=== PATIENT | male | born 1970 | race Caucasian/White ===

== ENCOUNTER 2017-08-27 11:58 | Observation (INO) | payer BC, OTHER ==
[2017-08-27] MEDS ORDERED: ASPIRIN 81 MG PO STA (12:25)
[2017-08-27] MEDS ORDERED: NITROGLYCERIN OINT 1 INCH/GM PACKET TOPICAL STA (12:25)
--- NOTE | 2017-08-27 12:27 | ED ---
General Adult HPI - General Chief complaint: Chest Pain Stated complaint: Chest Pain Time Seen by Provider: 08/27/17 12:00 Source: patient, RN notes reviewed Mode of arrival: wheelchair Limitations: no limitations - History of Present Illness Initial comments: This is a 46-year-old male with past history significant for high blood pressure and smoking. Patient states he also has a positive family history for heart disease. Patient comes in today because she's had one day history of chest pain with pain radiating down his left arm. Patient states yesterday had the same thing he went to his family doctor's office today For about 6 hours is pressure, never did any blood work. Patient states the pain continues today is intermittent in nature. Patient states when it comes the pain is on his left arm and he has some shortness of breath. Patient denies any diaphoresis. Patient denies nausea vomiting diarrhea. Patient denies headache patient denies numbness weakness. Patient denies any lightheadedness dizziness or near syncopal episode. - Related Data Home Medications Medication Instructions Recorded Confirmed Allopurinol [Zyloprim] 200 mg PO DAILY 08/27/17 08/27/17 Lisinopril-Hctz 20-12.5 mg 1 tab PO DAILY 08/27/17 08/27/17 [Zestoretic 20-12.5] oxyCODONE HCL 20 mg PO QID 08/27/17 08/27/17 Allergies Allergy/AdvReac Type Severity Reaction Status Date / Time No Known Allergies Allergy Verified 08/27/17 13:03 Review of Systems ROS Statement: Those systems with pertinent positive or pertinent negative responses have been documented in the HPI. ROS Other: All systems not noted in ROS Statement are negative. Past Medical History Past Medical History: Hypertension History of Any Multi-Drug Resistant Organisms: None Reported Past Surgical History: Back Surgery, Orthopedic Surgery Past Psychological History: No Psychological Hx Reported Smoking Status: Current every day smoker Past Alcohol Use History: Occasional Past Drug Use History: None Reported General Exam - General Exam Comments Initial Comments: GENERAL: Patient is well-developed and well-nourished. Patient is nontoxic and well- hydrated and is in mild distress. ENT: Neck is soft and supple. No significant lymphadenopathy is noted. Oropharynx is clear. Moist mucous membranes. Neck has full range of motion without eliciting any pain. EYES: The sclera were anicteric and conjunctiva were pink and moist. Extraocular movements were intact and pupils were equal round and reactive to light. Eyelids were unremarkable. PULMONARY: Unlabored respirations. Good breath sounds bilaterally. No audible rales rhonchi or wheezing was noted. CARDIOVASCULAR: There is a regular rate and rhythm without any murmurs gallops or rubs. ABDOMEN: Soft and nontender with normal bowel sounds. No palpable organomegaly was noted. There is no palpable pulsatile mass. SKIN: Skin is clear with no lesions or rashes and otherwise unremarkable. NEUROLOGIC: Patient is alert and oriented x3. Cranial nerves II through XII are grossly intact. Motor and sensory are also intact. Normal speech, volume and content. Symmetrical smile. MUSCULOSKELETAL: Normal extremities with adequate strength and full range of motion. LYMPHATICS: No significant lymphadenopathy is noted PSYCHIATRIC: Normal psychiatric evaluation. Limitations: no limitations Course Vital Signs 08/27/17 08/27/17 08/27/17 12:04 12:44 13:15 Temperature 98.4 F Pulse Rate 75 84 64 Respiratory 20 18 18 Rate Blood Pressure 133/83 137/81 124/59 O2 Sat by Pulse 100 99 98 Oximetry Medical Decision Making - Medical Decision Making EKG shows normal sinus rhythm at 70 bpm NC interval 130 QRS is 86 QT interval 418 QTC is 451. Patient's EKG shows no ST segment elevation or depression or T wave normalities are noted. Patient's chest x-ray shows no acute normalities. Patient's chest pain was much improved. - Lab Data Result diagrams: 08/27/17 12:27 08/27/17 12:27 Lab Results 08/27/17 08/27/17 08/27/17 Range/Units 12:27 12:27 12:27 WBC 7.3 (3.8-10.6) k/uL RBC 4.95 (4.30-5.90) m/uL Hgb 15.2 (13.0-17.5) gm/dL Hct 45.2 (39.0-53.0) % MCV 91.3 (80.0-100.0) fL MCH 30.8 (25.0-35.0) pg MCHC 33.7 (31.0-37.0) g/dL RDW 13.3 (11.5-15.5) % Plt Count 272 (150-450) k/uL Neutrophils % 73 % Lymphocytes % 20 % Monocytes % 4 % Eosinophils % 2 % Basophils % 0 % Neutrophils # 5.3 (1.3-7.7) k/uL Lymphocytes # 1.5 (1.0-4.8) k/uL Monocytes # 0.3 (0-1.0) k/uL Eosinophils # 0.2 (0-0.7) k/uL Basophils # 0.0 (0-0.2) k/uL PT (9.0-12.0) sec INR (<1.2) APTT (22.0-30.0) sec Sodium 141 (137-145) mmol/L Potassium 4.5 (3.5-5.1) mmol/L Chloride 109 H (98-107) mmol/L Carbon Dioxide 22 (22-30) mmol/L Anion Gap 10 mmol/L BUN 16 (9-20) mg/dL Creatinine 0.66 (0.66-1.25) mg/dL Est GFR (MDRD) Af Amer >60 (>60 ml/min/1.73 sqM) Est GFR (MDRD) Non-Af >60 (>60 ml/min/1.73 sqM) Glucose 118 H (74-99) mg/dL Calcium 9.7 (8.4-10.2) mg/dL Magnesium 2.2 (1.6-2.3) mg/dL Total Bilirubin 0.4 (0.2-1.3) mg/dL AST 19 (17-59) U/L ALT 32 (21-72) U/L Alkaline Phosphatase 86 (38-126) U/L Total Creatine Kinase 106 (55-170) U/L CK-MB (CK-2) 2.2 (0.0-2.4) ng/mL CK-MB (CK-2) Rel Index 2.1 Troponin I <0.012 (0.000-0.034) ng/mL Total Protein 6.6 (6.3-8.2) g/dL Albumin 4.0 (3.5-5.0) g/dL 08/27/17 Range/Units 12:27 WBC (3.8-10.6) k/uL RBC (4.30-5.90) m/uL Hgb (13.0-17.5) gm/dL Hct (39.0-53.0) % MCV (80.0-100.0) fL MCH (25.0-35.0) pg MCHC (31.0-37.0) g/dL RDW (11.5-15.5) % Plt Count (150-450) k/uL Neutrophils % % Lymphocytes % % Monocytes % % Eosinophils % % Basophils % % Neutrophils # (1.3-7.7) k/uL Lymphocytes # (1.0-4.8) k/uL Monocytes # (0-1.0) k/uL Eosinophils # (0-0.7) k/uL Basophils # (0-0.2) k/uL PT 10.4 (9.0-12.0) sec INR 1.0 (<1.2) APTT 25.6 (22.0-30.0) sec Sodium (137-145) mmol/L Potassium (3.5-5.1) mmol/L Chloride (98-107) mmol/L Carbon Dioxide (22-30) mmol/L Anion Gap mmol/L BUN (9-20) mg/dL Creatinine (0.66-1.25) mg/dL Est GFR (MDRD) Af Amer (>60 ml/min/1.73 sqM) Est GFR (MDRD) Non-Af (>60 ml/min/1.73 sqM) Glucose (74-99) mg/dL Calcium (8.4-10.2) mg/dL Magnesium (1.6-2.3) mg/dL Total Bilirubin (0.2-1.3) mg/dL AST (17-59) U/L ALT (21-72) U/L Alkaline Phosphatase (38-126) U/L Total Creatine Kinase (55-170) U/L CK-MB (CK-2) (0.0-2.4) ng/mL CK-MB (CK-2) Rel Index Troponin I (0.000-0.034) ng/mL Total Protein (6.3-8.2) g/dL Albumin (3.5-5.0) g/dL Disposition Clinical Impression: Chest pain Disposition: ADMITTED IP TO THIS [facility] Referrals: None,Stated [Primary Care Provider] - 1-2 days Time of Disposition: 13:47
[2017-08-27 12:58] LABS: Basophils % (A) 0 %; CH 31.1; CHCM 34.2; Eosinophils # (A) 0.2 k/uL (0-0.7); Eosinophils % (A) 2 %; HCT 45.2 % (39.0-53.0); HDW 2.56; HGB 15.2 gm/dL (13.0-17.5); Luc # (Auto) 0.08; Luc % (Auto) 1; Lymphocytes # (A) 1.5 k/uL (1.0-4.8); Lymphocytes % (A) 20 %; MCH 30.8 pg (25.0-35.0); MCHC 33.7 g/dL (31.0-37.0); MCV 91.3 fL (80.0-100.0); Monocytes # (A) 0.3 k/uL (0-1.0); Monocytes % (A) 4 %; Neutrophils # (A) 5.3 k/uL (1.3-7.7); Neutrophils % (A) 73 %; RBC 4.95 m/uL (4.30-5.90); RDW 13.3 % (11.5-15.5); WBC 7.3 k/uL (3.8-10.6); WBC (Perox) 7.09
--- NOTE | 2017-08-27 12:59 | XR ---
EXAMINATION TYPE: XR chest 2V DATE OF EXAM: 08/27/2017 COMPARISON: NONE HISTORY: Chest pain TECHNIQUE: Frontal and lateral views of the chest are obtained. FINDINGS: There is no focal air space opacity. No evidence for pneumothorax. No pleural effusion. The cardiac silhouette size is within normal limits. The osseous structures are grossly intact. IMPRESSION: 1. No acute cardiopulmonary process.
[2017-08-27 13:03] LABS: Partial Thromboplastin Time 25.6 sec (22.0-30.0); Prothrombin Time 10.4 sec (9.0-12.0)
[2017-08-27 13:07] LABS: ALT 32 U/L (21-72); AST 19 U/L (17-59); Alkaline Phosphatase 86 U/L (38-126); Anion Gap 10 mmol/L; Blood Urea Nitrogen 16 mg/dL (9-20); Calcium 9.7 mg/dL (8.4-10.2); Carbon Dioxide 22 mmol/L (22-30); Chloride 109 mmol/L (98-107); Glucose 118 mg/dL (74-99); Magnesium 2.2 mg/dL (1.6-2.3); Non-African American GFR(MDRD) >60 (>60 ml/min/1.73 sqM); Potassium 4.5 mmol/L (3.5-5.1); Sodium 141 mmol/L (137-145); Total Bilirubin 0.4 mg/dL (0.2-1.3); Total Protein 6.6 g/dL (6.3-8.2)
[2017-08-27 13:16] LABS: Creatine Kinase 106 U/L (55-170)
[2017-08-27 13:29] LABS: Creatine Kinase MB 2.2 ng/mL (0.0-2.4); Troponin I <0.012 ng/mL (0.000-0.034)
[2017-08-27] MEDS ORDERED: NITROGLYCERIN SL TABS 0.4 MG TAB SUBLINGUAL PRN (13:49)
[2017-08-27 15:24] VITALS: BMI 25.1
--- NOTE | 2017-08-27 16:20 | P.HPIM ---
History of Present Illness 47-year-old gentleman with history of high blood pressure and smoking history smokes about 10 cigars per day came in with complaints of chest pressure-like sensation nonexertional in the midsternal area radiating to the left arm 5 x 10 in severity lasted for few hours no aggravating or relieving factors improved now patient denied any fever, chills patient is complaining of cough and Alvaro congestion patient denied any diaphoresis, lightheadedness associated with that patient's chest pain is nonpleuritic in nature not associated with food rate patient has some shortness of breath associated with chest pain as well. Review of Systems REVIEW OF SYSTEMS: CONSTITUTIONAL: No fever, no malaise, no fatigue. HEENT: No recent visual problems or hearing problems. Denied any sore throat. CARDIOVASCULAR: No orthopnea, PND, no palpitations, no syncope. PULMONARY: , no cough, no hemoptysis. GASTROINTESTINAL: No diarrhea, no nausea, no vomiting, no abdominal pain. Normoactive bowel sounds. NEUROLOGICAL: No headaches, no weakness, no numbness. HEMATOLOGICAL: Denies any bleeding or petechiae. GENITOURINARY: Denies any burning micturition, frequency, or urgency. MUSCULOSKELETAL/RHEUMATOLOGICAL: Denies any joint pain, swelling, or any muscle pain. ENDOCRINE: Denies any polyuria or polydipsia. The rest of the 14-point review of systems is negative. Past Medical History Past Medical History: Hypertension History of Any Multi-Drug Resistant Organisms: None Reported Past Surgical History: Back Surgery, Orthopedic Surgery Additional Past Surgical History / Comment(s): right knee acl reconstruction Past Anesthesia/Blood Transfusion Reactions: No Reported Reaction Past Psychological History: No Psychological Hx Reported Smoking Status: Current every day smoker Past Alcohol Use History: Occasional Additional Past Alcohol Use History / Comment(s): pt states he smokes less than 1/2 a ppd Past Drug Use History: None Reported Medications and Allergies Home Medications Medication Instructions Recorded Confirmed Type Allopurinol [Zyloprim] 200 mg PO DAILY 08/27/17 08/27/17 History Lisinopril-Hctz 20-12.5 mg 1 tab PO DAILY 08/27/17 08/27/17 History [Zestoretic 20-12.5] oxyCODONE HCL 20 mg PO QID 08/27/17 08/27/17 History Allergies Allergy/AdvReac Type Severity Reaction Status Date / Time No Known Allergies Allergy Verified 08/27/17 13:03 Physical Exam Vitals: Vital Signs Temp Pulse Pulse Resp BP BP Pulse Ox 08/27/17 15:00 98.5 F 76 16 122/59 98 08/27/17 14:08 81 18 155/66 98 08/27/17 14:07 98.3 F 08/27/17 13:15 64 18 124/59 98 08/27/17 12:44 84 18 137/81 99 08/27/17 12:04 98.4 F 75 20 133/83 100 Intake and Output 08/27/17 08/27/17 08/27/17 06:59 14:59 22:59 Other: Weight 81.647 kg 81.647 kg Patient Weight 08/28/17 06:59 Weight 81.647 kg PHYSICAL EXAMINATION: GENERAL: The patient is alert and oriented x3, not in any acute distress. Well developed, well nourished. HEENT: Pupils are round and equally reacting to light. EOMI. No scleral icterus. No conjunctival pallor. Normocephalic, atraumatic. No pharyngeal erythema. No thyromegaly. CARDIOVASCULAR: S1 and S2 present. No murmurs, rubs, or gallops. PULMONARY: Chest is clear to auscultation, no wheezing or crackles. ABDOMEN: Soft, nontender, nondistended, normoactive bowel sounds. No palpable organomegaly. MUSCULOSKELETAL: No joint swelling or deformity. EXTREMITIES: No cyanosis, clubbing, or pedal edema. NEUROLOGICAL: Gross neurological examination did not reveal any focal deficits. SKIN: No rashes. Results CBC & Chem 7: 08/27/17 12:27 08/27/17 12:27 Labs: Abnormal Lab Results - Last 24 Hours (Table) 08/27/17 Range/Units 12:27 Chloride 109 H (98-107) mmol/L Glucose 118 H (74-99) mg/dL Thrombosis Risk Factor Assmnt - Choose All That Apply Any of the Below Risk Factors Present?: Yes Each Factor Represents 1 point: Age 41-60 years, Obesity (BMI >25) Other Risk Factors: No Other congenital or acquired thrombophilia - If yes, enter type in comment: No Thrombosis Risk Factor Assessment Total Risk Factor Score: 2 Thrombosis Risk Factor Assessment Level: Low Risk Assessment and Plan Plan: #1 chest pain we will rule out acute coronary syndromes: Patient may end up needing a stress test as of his smoking history. Patient's second-degree relative has history of premature coronary artery disease in his 50s. Patient will be evaluated cardiology #2 tobacco abuse counseling was provided #3 hypertension patient will be resumed on his home medications. #4 chronic low back pain
[2017-08-27] MEDS: NITROGLYCERIN OINT 1 INCH/GM PACKET TOPICAL SCH ×2 (17:49→23:27)
[2017-08-27] MEDS: ALLOPURINOL 100 MG TAB PO SCH (17:50)
[2017-08-27 19:20] LABS: Creatine Kinase 95 U/L (55-170)
[2017-08-27 19:33] LABS: Creatine Kinase MB 1.5 ng/mL (0.0-2.4); Troponin I <0.012 ng/mL (0.000-0.034)
[2017-08-27 21:06] VITALS: RESP 18
[2017-08-28 00:32] LABS: Creatine Kinase 99 U/L (55-170)
[2017-08-28 00:45] LABS: Creatine Kinase MB 1.7 ng/mL (0.0-2.4); Troponin I <0.012 ng/mL (0.000-0.034)
[2017-08-28] MEDS: NITROGLYCERIN OINT 1 INCH/GM PACKET TOPICAL SCH (06:01)
[2017-08-28 07:19] LABS: Basophils % (A) 1 %; CH 31.7; CHCM 34.4; Eosinophils # (A) 0.3 k/uL (0-0.7); Eosinophils % (A) 4 %; HCT 44.5 % (39.0-53.0); HDW 2.57; HGB 14.7 gm/dL (13.0-17.5); Luc # (Auto) 0.12; Luc % (Auto) 2; Lymphocytes # (A) 2.5 k/uL (1.0-4.8); Lymphocytes % (A) 33 %; MCH 30.6 pg (25.0-35.0); MCV 92.7 fL (80.0-100.0); Mean Platelet Volume 7.5; Monocytes # (A) 0.4 k/uL (0-1.0); Monocytes % (A) 6 %; Neutrophils # (A) 4.2 k/uL (1.3-7.7); Neutrophils % (A) 56 %; RDW 13.8 % (11.5-15.5); WBC 7.5 k/uL (3.8-10.6); WBC (Perox) 6.95
[2017-08-28 07:38] LABS: Anion Gap 10 mmol/L; Blood Urea Nitrogen 12 mg/dL (9-20); Calcium 9.5 mg/dL (8.4-10.2); Carbon Dioxide 24 mmol/L (22-30); Chloride 106 mmol/L (98-107); Cholesterol 227 mg/dL (<200); Glucose 108 mg/dL (74-99); HDL Cholesterol 37 mg/dL (40-60); Non-African American GFR(MDRD) >60 (>60 ml/min/1.73 sqM); Potassium 4.2 mmol/L (3.5-5.1); Sodium 140 mmol/L (137-145)
[2017-08-28] MEDS: ALLOPURINOL 100 MG TAB PO SCH (08:25)
[2017-08-28] MEDS ORDERED: LISINOPRIL-HCTZ 20-12.5 MG 1 EACH TAB PO SCH (09:00)
[2017-08-28] MEDS ORDERED: ASPIRIN 325 MG TAB PO SCH (09:00)
[2017-08-28] MEDS ORDERED: ATORVASTATIN 40 MG TAB PO SCH (09:30)
--- NOTE | 2017-08-28 10:04 | CONS ---
CONSULTATION Mr. Davila is 46-year-old male with a known history of hypertension, history of chronic tobacco use, who presented with symptoms of chest discomfort. He has been having discomfort for 2 days, not exertional in pattern and at times lasting for few hours. He has some dyspnea on exertion. Because of the persistent symptoms, he came into the emergency room and subsequently admitted. The patient is active physically, has no symptoms of exertional chest discomfort. He has no dizziness, palpitation, or syncope. No PND, orthopnea, or peripheral edema. He has no prior documented history of CAD. His coronary risk factors are remarkable for history of hypertension, history of chronic tobacco use. He is nondiabetic. His lipid profile is not available. His uncle had a history of premature coronary disease. MEDICATION: His medications at home include: 1. Oxycodone. 2. Lisinopril HCT 20-12.5 mg daily. 3. Zyloprim. REVIEW OF SYSTEMS: RESPIRATORY SYSTEM: He has no documented history of asthma or emphysema. No recent wheezing. GI system no recent GI bleeding. No peptic ulcer disease. system: No dysuria or hematuria. Nervous system: No stroke or seizure. PHYSICAL EXAMINATION: 46-year-old male, alert, oriented, in no apparent distress. Blood pressure 136/79 with a heart rate in 70s. HEAD: Normocephalic. Eyes sclerae anicteric. Neck good upstroke. No bruit. No jugular venous distention. LUNGS: Clear to auscultation. HEART: Regular rhythm, S1, S2. No S3, no S4. No murmur, rub. ABDOMEN: Soft, nontender. Positive bowel sounds no megaly. EXTREMITIES: No edema. Intact pulses. LAB DATA: EKG revealed sinus mechanism, normal axis. Normal axis, early transition, no acute changes. Troponin less than 0.012. BUN and creatinine of 12 and 0.8. Potassium 4.2. Hemoglobin 14.7. Cholesterol of 227 with an LDL of 164. Chest x-ray revealed no acute infiltrate. IMPRESSION: 1. Chest discomfort of unclear etiology, appears to be atypical for ischemic heart disease. 2. Chronic tobacco use. 3. Hyperlipidemia, not treated. 4. Hypertension. RECOMMENDATION: From the cardiac standpoint, I will obtain echocardiogram with Doppler. If there is no evidence of segmental wall motion then I expect the patient to be able to be discharged home today and undergo a stress echocardiogram as an outpatient. I have discussed with him the importance of smoking cessation. Thank you for this consult. We will follow with you. MICHELLEL / IJN: [id number] /
[2017-08-28 11:46] VITALS: BP 124/65; PULSE 83; TEMP 97.7
--- NOTE | 2017-08-28 12:27 | P.DS ---
Providers Date of admission: 08/27/17 13:49 Attending physician: Jennifer Joy Consults: 08/27/17 13:49 Consult Physician Urgent Consulting Provider: [facility] Consult Reason/Comments: Chest pain Do you want consulting provider notified?: Yes Primary care physician: Stated None Hospital Course: Patient was admitted for chest pain cardio valid the patient is recommending outpatient stress test patient appears to have an atypical chest pain feeling better today and will be discharged today. PHYSICAL EXAMINATION: GENERAL: The patient is alert and oriented x3, not in any acute distress. Well developed, well nourished. HEENT: Pupils are round and equally reacting to light. EOMI. No scleral icterus. No conjunctival pallor. Normocephalic, atraumatic. No pharyngeal erythema. No thyromegaly. CARDIOVASCULAR: S1 and S2 present. No murmurs, rubs, or gallops. PULMONARY: Chest is clear to auscultation, no wheezing or crackles. ABDOMEN: Soft, nontender, nondistended, normoactive bowel sounds. No palpable organomegaly. MUSCULOSKELETAL: No joint swelling or deformity. EXTREMITIES: No cyanosis, clubbing, or pedal edema. NEUROLOGICAL: Gross neurological examination did not reveal any focal deficits. SKIN: No rashes. #1 chest pain we will rule out acute coronary syndromes: #2 tobacco abuse counseling was provided #3 hypertension patient will be resumed on his home medications. #4 chronic low back pain Plan - Discharge Summary New Discharge Prescriptions: New Atorvastatin [Lipitor] 40 mg PO DAILY #30 tab Continue oxyCODONE HCL 20 mg PO QID Lisinopril-Hctz 20-12.5 mg [Zestoretic 20-12.5] 1 tab PO DAILY Allopurinol [Zyloprim] 200 mg PO DAILY Discharge Medication List Allopurinol [Zyloprim] 200 mg PO DAILY 08/27/17 [History] Lisinopril-Hctz 20-12.5 mg [Zestoretic 20-12.5] 1 tab PO DAILY 08/27/17 [History ] oxyCODONE HCL 20 mg PO QID 08/27/17 [History] Atorvastatin [Lipitor] 40 mg PO DAILY #30 tab 08/28/17 [Rx] Follow up Appointment(s)/Referral(s): Griselda Nash MD [STAFF PHYSICIAN] - 3 Weeks None,Stated [Primary Care Provider] - 1-2 days Discharge Disposition: HOME SELF-CARE
--- NOTE | 2017-08-28 14:26 | ECHOF ---
Referral Reason: MEASUREMENTS -------- HEIGHT: 162.6 cm WEIGHT: 81.6 kg BP: 170/115 IVSd: 1.1 cm (0.6 - 1.1) LVIDd: 5.8 cm (3.9 - 5.3) LVPWd: 0.8 cm (0.6 - 1.1) IVSs: 1.3 cm LVIDs: 3.8 cm LVPWs: 1.5 cm LA Diam: 3.8 cm (2.7 - 3.8) Ao Diam: 3.4 cm (2.0 - 3.7) AV Cusp: 1.9 cm (1.5 - 2.6) LA Diam: 4.3 cm (2.7 - 3.8) MV EXCURSION: 23.254 mm (> 18.000) MV EF SLOPE: 81 mm/s (70 - 150) EPSS: 0.3 cm MV E Severiano: 0.62 m/s MV DecT: 177 ms MV A Severiano: 0.48 m/s MV E/A Ratio: 1.30 RAP: 5.00 mmHg RVSP: 27.32 mmHg FINDINGS -------- Sinus rhythm. This was a technically good study. LV size, wall thickness and systolic function are normal, with an EF greater than 55%. The right ventricle is normal in size. Normal LA size by volume 22+/-6 ml/m2. The right atrial size is normal. The aortic valve is trileaflet, and appears structurally normal. No aortic stenosis or regurgitation. The mitral valve is normal. Mild mitral regurgitation is present. Mild tricuspid regurgitation present. There is no evidence of pulmonary hypertension. The right ventricular systolic pressure, as measured by Doppler, is 27.32mmHg. There is no pulmonic regurgitation present. The aortic root size is normal. There is no pericardial effusion. CONCLUSIONS -------- 1. Sinus rhythm. 2. The aortic root size is normal. 3. There is no pericardial effusion. 4. This was a technically good study. 5. LV size, wall thickness and systolic function are normal, with an EF greater than 55%. 6. Normal LA size by volume 22+/-6 ml/m2. 7. The aortic valve is trileaflet, and appears structurally normal. No aortic stenosis or regurgitation. 8. Mild mitral regurgitation is present. 9. Mild tricuspid regurgitation present. 10. There is no evidence of pulmonary hypertension. 11. There is no pulmonic regurgitation present. CATHETER BUILDER: Tessy Guy RDCS
== END 2017-08-28 12:10 | disposition home or self-care (01) ==
LOC: EC 11:58 → 3OBS 13:49
PROVIDERS: ADMIT Hospitalist; ATTEND Hospitalist
DX: R07.89 Other chest pain (principal); E78.5 Hyperlipidemia, unspecified; I10 Essential (primary) hypertension; G89.29 Other chronic pain; M54.5 Low back pain; Z82.49 Family history of ischemic heart disease and other diseases of the circulatory system; M79.602 Pain in left arm; R06.02 Shortness of breath; R06.09 Other forms of dyspnea; E66.9 Obesity, unspecified; Z68.25 Body mass index [BMI] 25.0-25.9, adult; Z79.899 Other long term (current) drug therapy; Z79.891 Long term (current) use of opiate analgesic; F17.290 Nicotine dependence, other tobacco product, uncomplicated
CPT/HCPCS: 99285; 36415; 93005; 93306; 80061; 80053; 80048; 82550; 82553; 83735; 84484; 85025 ×2; 85610; 85730; 71020; G0378 ×2

== ENCOUNTER → 2021-03-27 | Outpatient (CLI) | payer BC ==
--- NOTE | 2021-03-27 20:38 | CONS ---
CONSULTATION DATE OF SERVICE: 03/27/2021 This 50-year-old gentleman has been evaluated in [facility] for obstructive sleep apnea-hypopnea syndrome. HISTORY OF PRESENT ILLNESS/SLEEP-WAKE EVALUATION: The patient has a history of obstructive sleep apnea since 2005. Since that time he has been on treatment with CPAP and continues to use the equipment every night for the whole night. His sleep schedule is from midnight until 8 a.m. on weekdays and until 9 a.m. on weekends. No problems with falling asleep, although he has a TV set in the bedroom. He usually sleeps on the side position. He wakes up from sleep 2 times with nocturia even while using his CPAP. During the day he usually does not take naps. [place] Sleepiness Scale is 3. No history of hypnagogic hallucinations, sleep paralysis or cataplexy. PAST MEDICAL HISTORY: Positive for hypertension, hyperlipidemia, acid reflux. PAST SURGICAL HISTORY: Right knee surgery in 1997, back surgery at level L5-S1. MEDICATIONS: 1. Losartan 25 mg once a day. 2. Amlodipine 10 mg once a day. 3. Pravastatin 40 mg once a day. 4. Nexium once a day. 5. Vitamin D 50,000 units once a week. SOCIAL HISTORY: Alcohol consumption on weekends. FAMILY HISTORY: Hypertension, acid reflux. REVIEW OF SYSTEMS: No fevers. No double vision. No recent chest pain. No shortness of breath. No abdominal pain. No bleeding episodes. No blood in the urine. No seizure episodes. Occasional awakenings while using his CPAP. PHYSICAL EXAMINATION: GENERAL: A pleasant gentleman without distress. VITAL SIGNS: BP 179/99, HR 83, RR 16, height 5 feet 10 inches, weight 207.2, temperature 97.6, oxygen saturation at room air 94%. Body mass index 29.7. HEENT: PERRLA, EOMI. Evaluation of oropharynx showed tongue protrudes midline. Short distance between soft palate and pharyngeal wall. NECK: Supple. No JVD. Thyroid is not palpable. Neck is 17 inches in circumference. LUNGS: Clear to percussion and to auscultation. Good air exchange. No wheezing or rhonchi. HEART: S1, S2 regular. No murmurs, gallops or rubs. ABDOMEN: Soft and nontender. Bowel sounds are present. No organomegaly appreciated. EXTREMITIES: No clubbing or cyanosis. DIGITAL WATCH ASSEMBLER: Awake, alert, and oriented X3. Cranial nerves 2 to 7 intact. There is no fasciculation or atrophy. noted. No focal deficits observed. IMPRESSION: 1. Obstructive sleep apnea-hypopnea syndrome for about 15 years. The patient continues to use his CPAP equipment. Sometimes he has awakenings from sleep with nocturia while on CPAP. CPAP unit is very old, more than 10 years old. 2. Hypertension. 3. Hyperlipidemia. 4. Acid reflux. 5. Status post right knee surgery in 1997. 6. Status post back surgery on the level L5-S1. PLAN: 1. Prescription for all necessary CPAP supplies, including medium-sized nasal pillow mask, tube, filters. 2. Patient's CPAP unit needs to be replaced. Prescription has been written. 3. Home sleep apnea test if necessary to confirm obstructive sleep apnea-hypopnea syndrome. 4. Watching weight. 5. Sleep hygiene with regular time in bed for at least 7-1/2 to 8 hours. 6. No driving if feeling any sleepiness. Thank you very much for referring this patient for consultation. Sincerely, David Smith MD, PhD, FAASM Diplomat of [employer] Advanced Quality Engineer of [facility] [place] MMODL / MUMTAZN: [id number] /
== END ==
LOC: SLEEP 16:19
PROVIDERS: ATTEND Internal Medicine
DX: G47.33 Obstructive sleep apnea (adult) (pediatric) (principal); I10 Essential (primary) hypertension; E78.5 Hyperlipidemia, unspecified; K21.9 Gastro-esophageal reflux disease without esophagitis; Z96.651 Presence of right artificial knee joint; Z98.890 Other specified postprocedural states

== ENCOUNTER → 2021-07-30 | Outpatient (CLI) | payer BC ==
--- NOTE | 2021-07-30 19:23 | SFUN ---
SLEEP CENTER FOLLOW UP NOTE DATE OF SERVICE: 07/30/2021 50-year-old gentleman has been followed in Sleep Center for treatment of obstructive sleep apnea-hypopnea syndrome. Recently the patient had repeated home sleep apnea test and I discussed results of the test with the patient in detail. Test showed severe obstructive sleep apnea-hypopnea syndrome. After that, the patient was prescribed CPAP unit. Today is his first visit with new CPAP unit. He is able to use equipment every night, likes it. No problems with the machine. [place] Sleepiness Scale today is only 2 which is perfect. I checked CPAP unit. Range of the pressure 5-15 with average pressure 9.6 cm of water. Usage is 30/30 nights for more than 4 hours with average usage is 8.1 hours per night. Leak is only 10 L/minute which is acceptable. Apnea-hypopnea index 1.1 which is perfect. MEDICATIONS: Losartan 25 mg once a day, amlodipine 10 mg once a day, atorvastatin 40 mg once a day, Nexium once a day, vitamin D supplement. PHYSICAL EXAMINATION: GENERAL: Patient in no distress. BP 151/81, HR 86, RR 15, weight 203, temp 98.6, oxygen saturation at room air 96%. Oropharynx short distance between soft palate and pharyngeal wall. Good air exchange. No wheezing or rhonchi. NECK: Supple, no JVD. Thyroid is not palpable. LUNGS: Clear to percussion and to auscultation. Good air exchange. No wheezing or rhonchi. HEART: S1, S2 regular. No murmurs, gallops, or rubs. ABDOMEN: Soft and nontender. Bowel sounds are present. No organomegaly appreciated. EXTREMITIES: No clubbing or cyanosis. MANUFACTURING SCHEDULER: Awake, alert, and oriented X3. Cranial nerves 2 to 7 intact. There is no fasciculation or atrophy. noted. No focal deficits observed. IMPRESSION: 1. Severe obstructive sleep apnea-hypopnea syndrome apnea-hypopnea index 60.7 with oxygen desaturation to 64%. The patient demonstrated 100% compliance with treatment, benefitting from treatment. 2. Hypertension. 3. Hyperlipidemia. 4. Acid reflux. 5. Status post right knee surgery in 1997. 6. Status post back surgery L5-S1. PLAN: 1. Patient will continue to use PAP equipment every night for the whole night. 2. Sleep hygiene with regular time in bed for at least 7-1/2 to 8 hours. 3. Precautions related to driving. No driving if feeling sleepiness. 4. I will maintain all necessary prescription for PAP supplies including mask, tube, filters. 5. Watching weight. 6. Follow-up visit in 6 months or earlier if patient has any problems. I spent with the patient and documentation 30 minutes. Thank you very much for allowing me to participate in management of your patient. Sincerely, David Smith MD, PhD, FAASM Diplomat of [employer] Sleep Medicine Board of [place] Manager Fashion of [facility] [place] MMODL / IJN: [id number] /
== END ==
LOC: SLEEP 16:32
PROVIDERS: ATTEND Internal Medicine
DX: G47.33 Obstructive sleep apnea (adult) (pediatric) (principal); G47.36 Sleep related hypoventilation in conditions classified elsewhere; I10 Essential (primary) hypertension; E78.5 Hyperlipidemia, unspecified; K21.9 Gastro-esophageal reflux disease without esophagitis; Z98.890 Other specified postprocedural states; Z99.89 Dependence on other enabling machines and devices; Z79.899 Other long term (current) drug therapy

== ENCOUNTER → 2022-02-05 | Outpatient (CLI) | payer BC ==
--- NOTE | 2022-02-05 22:01 | SFUN ---
SLEEP CENTER FOLLOW UP NOTE DATE OF SERVICE: 02/05/2022 This 51-year-old gentleman has been followed in Sleep Center for treatment of obstructive sleep apnea-hypopnea syndrome. The patient continues to use his CPAP equipment every night for the whole night and is getting his supplies on time. No snoring with the machine. [place] Sleepiness Scale today is 2, which is absolutely normal. I checked his CPAP unit. It is in automatic regimen. Range of the pressure is 5 to 15, average pressure 9.7. Usage is 30/30 nights for more than 4 hours, average 7.8 hours per night. Leak is 8 L/minute. Apnea-hypopnea index is only 1.1, which is absolutely perfect. MEDICATIONS: 1. Losartan 25 mg once a day. 2. Amlodipine 10 mg once a day. 3. Atorvastatin 40 mg once a day. 4. Nexium once a day. 5. Vitamin D supplement. 6. injections once a week. PHYSICAL EXAMINATION: GENERAL: Pleasant patient in no distress. VITAL SIGNS: BP 144/93, HR 80, RR 16, height 5 feet 10 inches, weight 205, body mass index 29.4, temperature 98.4, oxygen saturation room air 96%. HEENT: PERRLA, EOMI, evaluation of oropharynx showed tongue protrudes midline. Short distance between soft palate and pharyngeal wall. NECK: Supple, no JVD. Thyroid is not palpable. LUNGS: Clear to percussion and to auscultation. Good air exchange. No wheezing or rhonchi. HEART: S1, S2 regular. No murmurs, gallops, or rubs. ABDOMEN: Soft and nontender. Bowel sounds are present. No organomegaly appreciated. EXTREMITIES: No clubbing or cyanosis. MEDICAL DEVICE SALES CONSULTANT: Awake, alert, and oriented X3. Cranial nerves 2 to 7 intact. There is no fasciculation or atrophy. noted. No focal deficits observed. IMPRESSION: 1. Severe obstructive sleep apnea-hypopnea syndrome; apnea-hypopnea index 60.7 with oxygen desaturation to 64%. The patient demonstrated great compliance with treatment. Normal aspiration on CPAP, benefitting from treatment. 2. Hypertension. 3. Hyperlipidemia. 4. Acid reflux. 5. Status post back surgery L5, S1. 6. Status post right knee surgery in 1997. PLAN: 1. Patient will continue to use PAP equipment every night for the whole night. 2. Sleep hygiene with regular time in bed for at least 7-1/2 to 8 hours. 3. Precautions related to driving. No driving if feeling sleepiness. 4. I will maintain all necessary prescription for PAP supplies including mask, tube, filters. 5. Watching weight. 6. Follow-up visit in 6 months or earlier if patient has any problems. Thank you very much for allowing me to participate in the management of your patient. Sincerely, David Smith MD, PhD, FAASM Diplomat of [place] [employer] Sleep Medicine Board of [place] [employer] Medicine Production Control Expert of [facility] [place] MMODL / MUMTAZN: [id number] /
== END ==
LOC: SLEEP 16:42
PROVIDERS: ATTEND Internal Medicine
DX: G47.33 Obstructive sleep apnea (adult) (pediatric) (principal); G47.36 Sleep related hypoventilation in conditions classified elsewhere; I10 Essential (primary) hypertension; E78.5 Hyperlipidemia, unspecified; K21.9 Gastro-esophageal reflux disease without esophagitis; Z99.89 Dependence on other enabling machines and devices; Z98.890 Other specified postprocedural states; F17.200 Nicotine dependence, unspecified, uncomplicated

== ENCOUNTER → 2022-07-09 | Outpatient (CLI) | payer OTHER ==
--- NOTE | 2022-07-09 14:54 | P.PN ---
Subjective DATE: 07/09/2022 FOLLOW UP VISIT. Patient with obstructive sleep apnea hypopnea syndrome return to sleep center for follow-up visit. Information from previous visit have been reviewed. Patient is using PAP equipment every night for the whole night, getting PAP supplies in time. The patient does not have significant problems with the mask, PAP unit and humidification. [place] sleepiness scale is 4. I checked PAP unit. PAP unit pressure 5-15, average 9.3 cm H2O. Usage is 100 % for more then 4 hours, average 8 hours per night. Leak is 7 l/m, which is in acceptable range. Apnea Hypopnea Index is 0.9, which is normal. MEDICATIONS:1. Amlodipine 10 mg once a day 2. Pravastatin 80 mg once a day 3. Losartan 25 mg once a day 4. Trialicity 0.75 mg once a week 5. .Repatha every 2 weeks During physical exam: GENERAL: A pleasant patient without any distress. VITAL SIGNS: BP 149/94, HR 92, RR 16 , weight 205.2, temperature 97.6, oxygen saturation at room air 97 % . HEENT: PERRLA, EOMI. NECK: Supple. No JVD. LUNGS: Clear to percussion and to auscultation. Good air exchange. No wheezing or rhonchi. HEART: S1, S2 regular. ABDOMEN: Soft and nontender.[] EXTREMITIES: No clubbing or cyanosis. ASSISTANT RESEARCH SCIENTIST: Awake, alert, and oriented x3. No focal deficit. Impressions: 1. Obstructive sleep apnea-hypopnea syndrome. Patient demonstrated great compliance with treatment, benefiting from treatment. 2. Hypertension. 3. Hyperlipidemia. 4. Acid reflux. 5. Status post back surgery L5-S1. 6. Status post right knee surgery in 1997. 7 Plan: 1. Continue using PAP equipment every night for the whole night. 2. To change air filter at least 1-2 times per month. 3. PAP unit should stay lower then position of the head. 4. Advised patient to remove all remaining water from humidifier canister daily and make it dry after each usage. Refill canister with fresh distilled water before each usage. 5. Sleep hygiene with regular time in bed for at least 8 hours. 6. Precautions related to driving. No driving if feel any sleepiness. 7. I will maintain prescription for PAP supplies including mask, tube, filters. 8. Follow up visit in 6 months or earlier if patient has any problems. 9. Watching weight. Thank you very much for allowing me to participate in the management of your patient. David Smith MD, PhD, FAASM. Diplomat of [place] [employer], Sleep Medicine Board by [place] [employer] Medicine Computer Technician of [facility] [place]
== END ==
LOC: SLEEP 14:23
PROVIDERS: ATTEND Internal Medicine
DX: G47.33 Obstructive sleep apnea (adult) (pediatric) (principal); I10 Essential (primary) hypertension; E78.5 Hyperlipidemia, unspecified; K21.9 Gastro-esophageal reflux disease without esophagitis; Z98.890 Other specified postprocedural states; Z99.89 Dependence on other enabling machines and devices; F17.200 Nicotine dependence, unspecified, uncomplicated
CPT/HCPCS: 99212

== ENCOUNTER → 2023-02-17 | Outpatient (CLI) | payer BC, OTHER ==
--- NOTE | 2023-02-17 17:42 | P.PN ---
Subjective DATE: 02/17/2023 FOLLOW UP VISIT. Patient with obstructive sleep apnea hypopnea syndrome return to sleep center for follow-up visit. Information from previous visit have been reviewed. Patient is using PAP equipment every night for the whole night, getting PAP supplies in time. The patient does not have significant problems with the mask, PAP unit and humidification. [place] sleepiness scale is 3, which is perfect. I checked information from PAP unit and discussed it with patient. PAP unit pressure 5-15, average 9.3 cm H2O. Usage is 100 % for more then 4 hours, average 7.8 hours per night. Apnea Hypopnea Index is 0.8, which is normal. MEDICATIONS:1. Losartan 25 mg once a day 2. Amlodipine 10 mg once a day 3. Pravastatin 80 mg once a day 4. Trulicity 0.75 mg once a week During physical exam: GENERAL: A pleasant patient without any distress. VITAL SIGNS: BP 184/100, HR 106, RR 16, weight 202, temperature 98.1, oxygen saturation at room air 98 % . HEENT: PERRLA, EOMI.low position of soft palate, Mallapati 3. NECK: Supple. No JVD. LUNGS: Clear to percussion and to auscultation. Good air exchange. No wheezing or rhonchi. HEART: S1, S2 regular. ABDOMEN: Soft and nontender.[] EXTREMITIES: No clubbing or cyanosis. ORTHOTIST PROSTHETIST: Awake, alert, and oriented x3. No focal deficit. Impressions: 1. Obstructive sleep apnea-hypopnea syndrome. Patient demonstrated great compliance with treatment, benefiting from treatment. 2. Hyperlipidemia. 3. Hypertension. 4. Acid reflux. 5. Status post right knee surgery in 1997. 6. Status post back surgery L5-S1. Plan: 1. Continue using PAP equipment every night for the whole night. 2. To change air filter at least 1-2 times per month. 3. PAP unit should stay lower then position of the head. 4. Advised patient to remove all remaining water from humidifier canister daily and make it dry after each usage. Refill canister with fresh distilled water before each usage. 5. Sleep hygiene with regular time in bed for at least 8 hours. 6. Precautions related to driving. No driving if feel any sleepiness. 7. I will maintain prescription for PAP supplies including mask, tube, filters. 8. Watching weight. 9. Follow up visit in 6 months or earlier if patient has any problems. Thank you very much for allowing me to participate in the management of your patient. David Smith MD, PhD, FAASM. Diplomat of [place] [employer] Sleep Medicine, Sleep Medicine Board by [place] [employer] Medicine Teacher [employer] Education of [facility] [place]
== END ==
LOC: SLEEP 15:50
PROVIDERS: ATTEND Internal Medicine
DX: G47.33 Obstructive sleep apnea (adult) (pediatric) (principal); E78.5 Hyperlipidemia, unspecified; I10 Essential (primary) hypertension; F17.210 Nicotine dependence, cigarettes, uncomplicated; K21.9 Gastro-esophageal reflux disease without esophagitis; I71.40 Abdominal aortic aneurysm, without rupture, unspecified; Z96.651 Presence of right artificial knee joint; Z99.89 Dependence on other enabling machines and devices; Z98.890 Other specified postprocedural states; Z79.01 Long term (current) use of anticoagulants; Z79.899 Other long term (current) drug therapy
CPT/HCPCS: 99212

== ENCOUNTER → 2024-08-17 | Outpatient (CLI) | payer OTHER ==
[2024-08-17 17:08] VITALS: BP 164/98; PULSE 91; RESP 16; TEMP 98.4
--- NOTE | 2024-08-17 17:29 | P.PROGSL ---
Subjective DATE: 08/17/2024 FOLLOW UP VISIT. Patient with obstructive sleep apnea hypopnea syndrome return to sleep center for follow-up visit. Information from previous visit have been reviewed. Patient is using PAP equipment every night for the whole night, getting PAP supplies in time. The patient does not have significant problems with the mask, PAP unit and humidification. [place] sleepiness scale is 5, which is normal. I checked information from PAP unit. PAP unit pressure 5-15, average 9.5 cm H2O. Usage is 100% for more then 4 hours, average 8.5 hours per night. Leak is 6 l/m, which is in acceptable range. Apnea Hypopnea Index is 0.4, which is normal. MEDICATIONS have been reviewed, please see below. During physical exam: GENERAL: A pleasant patient without any distress. VITAL SIGNS: Please see below, weight is 202.4 lbs. HEENT: PERRLA, EOMI.low position of soft palate, Mallapati 3. NECK: Supple. No JVD. LUNGS: Clear to percussion and to auscultation. Good air exchange. No wheezing or rhonchi. HEART: S1, S2 regular. ABDOMEN: Soft and nontender.[] EXTREMITIES: No clubbing or cyanosis. WIRELESS CONSTRUCTION MANAGER: Awake, alert, and oriented x3. No focal deficit. Impressions: 1. Obstructive sleep apnea-hypopnea syndrome. Patient demonstrated great compliance with treatment, benefiting from treatment. 2. Hypertension. 3. Hyperlipidemia. 4. Acid reflux. 5. Status post right knee surgery 1997. 6. Status post back surgery at the level of L5-S1. Plan: 1. Continue using PAP equipment every night for the whole night. 2. Sleep hygiene with regular time in bed for at least 7.5-8 hours 3. PAP unit should stay lower then position of the head. 4. Advised patient to remove all remaining water from humidifier canister daily and make it dry after each usage. Refill canister with fresh distilled water before each usage. 5. Watching weight. 6. Precautions related to driving. No driving if feel any sleepiness. 7. I will maintain prescription for PAP supplies including mask, tube, filters. 8. Follow up visit in 8-12 months or earlier if patient has any problems. Thank you very much for allowing me to participate in the management of your patient. David Smith MD, PhD, FAASM. Diplomat of [place] [employer] Sleep Medicine, Sleep Medicine Board by [place] [employer] Medicine Electronics Technology Department Chair of [facility] [place] Objective - Vital Signs Vital Signs: Vital Signs Temp 98.4 F 08/17/24 17:06 Pulse 91 08/17/24 17:06 Resp 16 08/17/24 17:06 BP 164/98 08/17/24 17:06 Pulse Ox 98 08/17/24 17:06 FiO2 Intake & Output 08/16/24 08/17/24 08/17/24 18:59 06:59 18:59 Weight 91.739 kg Home Medications: Home Medications Medication Instructions Recorded Confirmed Type Lisinopril-Hctz 20-12.5 mg 1 tab PO DAILY 08/27/17 08/27/17 History [Zestoretic 20-12.5] allopurinoL [Zyloprim] 200 mg PO DAILY 08/27/17 08/27/17 History oxyCODONE HCL [oxyCODONE HCL (IR)] 20 mg PO QID 08/27/17 08/27/17 History Atorvastatin [Lipitor] 40 mg PO DAILY #30 tab 08/28/17 Rx Amlodipine Besylate/Celecoxib 1 each PO DAILY 08/17/24 08/17/24 History [Consensi 10-200 mg Tablet] Dulaglutide [Trulicity] 0.75 mg SQ DIRECTED 08/17/24 08/17/24 History Evolocumab [Repatha Syringe] 140 mg PO DIRECTED 08/17/24 08/17/24 History Losartan Potassium 25 mg PO DAILY 08/17/24 08/17/24 History Montelukast Sodium 10 mg PO DAILY 08/17/24 08/17/24 History Pravastatin Sodium 80 mg PO DAILY 08/17/24 08/17/24 History allopurinoL 100 mg PO DAILY 08/17/24 08/17/24 History gemfibroziL [Lopid] 600 mg PO AC-BID 08/17/24 08/17/24 History
== END ==
LOC: 3 N SLEEP 16:28
PROVIDERS: ATTEND Internal Medicine
CPT/HCPCS: 99212